=== PATIENT | female | born 1970 | race African-American/Black ===

== ENCOUNTER 2020-07-03 15:37 | Inpatient (IN) | payer OTHER ==
[2020-07-03 15:55] VITALS: BMI 42.9
[2020-07-03] MEDS ORDERED: ALBUTEROL SO4 2.5/IPRATROPIUM 0.5 INH SOL 3 ML VIAL.NEB. NEB SCH (16:30)
[2020-07-03] MEDS ORDERED: MAGNESIUM SULF 50% (8.12 MEQ/2 ML-1 GM VIAL) IVPB ONE (17:25)
[2020-07-03] MEDS ORDERED: DEXAMETHASONE SOD PHOSPHATE 10 MG/1 ML VIAL IVPUSH ONE (17:25)
[2020-07-03] MEDS ORDERED: MAGNESIUM 1GM/D5W - 1 GM/100 ML IVPB IVPB ONE (17:45)
[2020-07-03] MEDS ORDERED: ALBUTEROL SO4 2.5/IPRATROPIUM 0.5 INH SOL 3 ML VIAL.NEB. NEB ONE ×3 (17:45→23:39)
[2020-07-03] MEDS ORDERED: ALBUTEROL SO4 HFA INHALER IH PRN ×2 (17:53→18:22)
[2020-07-03] MEDS ORDERED: ALBUTEROL SO4 HFA INHALER IH ONE (18:22)
[2020-07-03] MEDS ORDERED: ACETAMINOPHEN 1000 MG/100 ML VIAL (NON FORMULARY) IVPB ONE (18:49)
[2020-07-03 19:03] LABS: BASO % 0.7 % (0-2.0); EOS % 4.3 % (0-4.5); HEMATOCRIT 40.5 % (32.4-45.2); HEMOGLOBIN 13.4 GM/dL (10.7-15.3); LYMPH % 32.3 % (8-40); MCH 27.1 pg (25.7-33.7); MEAN CELL VOLUME 82.1 fl (80-96); MEAN PLT VOLUME 8.8 fl (7.5-11.1); MONO % 7.7 % (3.8-10.2); PLATELET COUNT 200 K/MM3 (134-434); RBC 4.93 M/mm3 (3.60-5.2); RDW 13.5 % (11.6-15.6); WHITE BLOOD COUNT 9.8 K/mm3 (4.0-10.0)
[2020-07-03 19:10] LABS: INR 0.99 (0.83-1.09); PROTHROMBIN TIME (PATIENT) 12.2 SEC (9.7-13.0)
[2020-07-03 19:13] LABS: ACTIVATED PTT 34.4 SECONDS (25.2-36.5)
[2020-07-03 19:23] LABS: CHLORIDE 111 mmol/L (98-107); POTASSIUM 3.9 mmol/L (3.5-5.1); SODIUM 145 mmol/L (136-145)
[2020-07-03 19:27] LABS: ALBUMIN 3.9 g/dl (3.4-5.0); ANION GAP 4 MMOL/L (8-16); BLOOD UREA NITROGEN 7.6 mg/dL (7-18); CALCIUM 8.3 mg/dL (8.5-10.1); CO2 29 mmol/L (21-32)
[2020-07-03 19:28] LABS: GLUCOSE,RANDOM 109 mg/dL (74-106)
[2020-07-03 19:30] LABS: SGOT/AST 15 U/L (15-37); SGPT/ALT 21 U/L (13-61)
[2020-07-03 19:31] LABS: CREATININE 1.6 mg/dL (0.55-1.3)
[2020-07-03 19:32] LABS: BILIRUBIN,TOTAL 0.4 mg/dL (0.2-1); TOT PROT 7.8 g/dl (6.4-8.2)
[2020-07-03 19:33] LABS: ALK PHOS 83 U/L (45-117)
[2020-07-03] MEDS ORDERED: SODIUM CHLORIDE 0.9% 500 ML INFUS.BAG IV ONE (19:57)
[2020-07-03] MEDS ORDERED: ACETAMINOPHEN INJECTION 100 ML IVPB ONE (20:16)
[2020-07-03 20:54] LABS: LDH 202 U/L (84-246)
[2020-07-03] MEDS: ALBUTEROL SO4 2.5/IPRATROPIUM 0.5 INH SOL 3 ML VIAL.NEB. NEB SCH (23:44)
[2020-07-04] MEDS: ALBUTEROL SO4 2.5/IPRATROPIUM 0.5 INH SOL 3 ML VIAL.NEB. NEB SCH ×3 (00:31→02:06)
[2020-07-04] MEDS ORDERED: ALBUTEROL SO4 HFA INHALER IH PRN ×2 (00:34→00:53)
[2020-07-04] MEDS ORDERED: HEPARIN NA (PORCINE) 5,000 UNITS/ML 1ML VIAL SQ SCH (06:00)
[2020-07-04 08:11] LABS: BASO % 0.1 % (0-2.0); HEMATOCRIT 36.7 % (32.4-45.2); HEMOGLOBIN 12.3 GM/dL (10.7-15.3); LYMPH % 11.6 % (8-40); MCH 27.3 pg (25.7-33.7); MCHC 33.5 g/dl (32.0-36.0); MEAN CELL VOLUME 81.6 fl (80-96); MEAN PLT VOLUME 8.9 fl (7.5-11.1); MONO % 3.7 % (3.8-10.2); NEUT % 84.6 % (42.8-82.8); PLATELET COUNT 194 K/MM3 (134-434); RDW 13.5 % (11.6-15.6); WHITE BLOOD COUNT 9.5 K/mm3 (4.0-10.0)
[2020-07-04 08:25] LABS: POTASSIUM 4.1 mmol/L (3.5-5.1)
[2020-07-04 08:30] LABS: CALCIUM 8.4 mg/dL (8.5-10.1)
[2020-07-04 08:31] LABS: BLOOD UREA NITROGEN 9.5 mg/dL (7-18)
[2020-07-04 08:34] LABS: CREATININE 1.7 mg/dL (0.55-1.3)
[2020-07-04 09:43] LABS: EPI CELLS 25 /uL (0-25.1); HYALINE CASTS 1 /uL (0-3.1); URINE APPEARANCE CLEAR; URINE BACTERIA 749 /uL (0-1359); URINE BILIRUBIN NEGATIVE (NEGATIVE); URINE COLOR YELLOW; URINE GLUCOSE (UA) NEGATIVE (NEGATIVE); URINE KETONE TRACE (NEGATIVE); URINE LEUK ESTERASE NEGATIVE (NEGATIVE); URINE NITRITE NEGATIVE (NEGATIVE); URINE PROTEIN 3+ (NEGATIVE); URINE RBC 19 /uL (0-23.9); URINE UROBILINOGEN 0.2 mg/dL (0.2-1.0); URINE WBC 26 /uL (0-25.8)
[2020-07-04] MEDS ORDERED: predniSONE 20 MG TABLET (UD) PO SCH (10:00)
[2020-07-04] MEDS ORDERED: BUDESONIDE/FORMETEROL FUMARATE 80/4.5 mcg INHALER IH SCH (10:00)
[2020-07-04] MEDS ORDERED: predniSONE 20 MG TABLET (UD) ONE (10:18)
[2020-07-04 13:26] VITALS: BP 135/74; PULSE 87; TEMP 98
== END 2020-07-04 13:28 | disposition home or self-care (01) | DRG 133 ==
LOC: JER 15:37 → JERBED 19:16
PROVIDERS: ADMIT Hospitalist; ATTEND Internal Medicine
DX: J96.01 Acute respiratory failure with hypoxia (principal); J45.901 Unspecified asthma with (acute) exacerbation; N17.9 Acute kidney failure, unspecified; I10 Essential (primary) hypertension; E66.9 Obesity, unspecified; Z68.41 Body mass index [BMI] 40.0-44.9, adult; Z71.3 Dietary counseling and surveillance; Z87.891 Personal history of nicotine dependence
CPT/HCPCS: 36415; 71045-TC-FY; 76775-TC; 80048; 80053; 81003; 82436; 82550; 82553; 82565; 82728; 82962; 83615; 83735; 84133; 84300; 84484; 85025; 85379; 85610; 85730; 86140; 87804; 93005; 93010; 99285-25; C9803; J0131; J1100; U0003

== ENCOUNTER 2020-09-10 10:32 | Emergency (ER) | payer OTHER ==
[2020-09-10 10:59] VITALS: BMI 39.4
[2020-09-10 12:54] VITALS: BP 145/86; PULSE 82; TEMP 98.3
== END 2020-09-10 12:53 | disposition home or self-care (01) ==
LOC: JER 10:32
DX: J45.901 Unspecified asthma with (acute) exacerbation (principal)
CPT/HCPCS: 93005; 93010; 99283-25